=== PATIENT | female | born 1965 | race Caucasian/White ===

== ENCOUNTER → 2024-05-05 12:02 | Outpatient (CLI) | payer OTHER, SELFPAY ==
[2024-05-05 20:39] LABS: Add Manual Diff / Slide Review NO; Basophils Absolute Auto 0 /uL (0-100); Basophils Percent Auto 0.5 % (0-2); Eosinophils Absolute Auto 100 /uL (0-450); Eosinophils Percent Auto 2.4 % (2-4); Hematocrit 40.3 % (36-46); Hemoglobin 13.6 g/dL (12.0-16.0); Lymphocytes Absolute Auto 1800 /uL (1100-4500); Lymphocytes Percent Auto 36.9 % (25-40); Mean Corpuscular HGB Conc 33.6 % (30-36); Mean Corpuscular Hemoglobin 30.6 PG (26-34); Mean Corpuscular Volume 91.1 fL (80-100); Monocytes Absolute Auto 400 /uL (0-900); Monocytes Percent Auto 8.1 % (3-14); Neutrophils Absolute Auto 2500 /uL (1500-7000); Neutrophils Percent Auto 52.1 % (50-75); Platelet Count 243 X10^3/uL (150-400); Red Blood Cell Count 4.43 X10^6/uL (4.0-5.2); White Blood Cell Count 4.8 X10^3/uL (4.5-11.0)
[2024-05-05 20:46] LABS: Alanine Aminotransferase 16 IU/L (<35); Albumin 4.3 g/dL (3.5-5.0); Albumin Globulin Ratio 1.6 (1.0-2.8); Alkaline Phosphatase 83 U/L (38-126); Aspartate Aminotransferase 22 IU/L (14-36); Bilirubin Total 0.6 mg/dL (0.2-1.3); Blood Urea Nitrogen 18 mg/dL (7-17); Calcium 9.5 mg/dL (8.4-10.2); Carbon Dioxide 24 mmol/L (22-32); Chloride 105 mmol/L (98-107); Cholesterol 222 mg/dL (140-199); Estimated Glomerular Filt Rate > 60 mL/min (>60); Globulin 2.7 g/dL (1.7-4.1); Glucose 96 mg/dL (70-100); HDL Cholesterol 59 mg/dL (40-60); HEMOLYSIS < 15 (0-50); LDL Cholesterol Calculated 147 mg/dL (<100); Sodium 137 mmol/L (137-145); Triglycerides 79 mg/dL (35-150)
[2024-05-05 20:56] LABS: Hemoglobin A1C% w Est Avg Glu 5.8 % (4.0-6.0)
[2024-05-05 21:33] LABS: Free T3, Triiodothyronine Free 3.52 pg/mL (2.77-5.27)
[2024-05-05 21:47] LABS: Thyroid Stimulating Hormone 1.09 uIU/mL (0.47-4.68)
[2024-05-05 22:06] LABS: Vitamin B12 651 pg/mL (239-931)
[2024-05-07 03:11] LABS: Homocysteine 10.8 umol/L (0.0-14.5)
[2024-05-07 06:06] LABS: Apolipoprotein B 107 mg/dL (<90)
[2024-05-09 15:36] LABS: Lipoprotein (a) 195.7 nmol/L (<75.0)
[2024-05-09 23:36] LABS: Methylmalonic Acid,Serum 137 nmol/L (0-378)
== END ==
PROVIDERS: Visit Provider Registered Nurse
DX: Z85.50 Personal history of malignant neoplasm of unspecified urinary tract organ (principal); E03.9 Hypothyroidism, unspecified; Z85.850 Personal history of malignant neoplasm of thyroid; Z82.49 Family history of ischemic heart disease and other diseases of the circulatory system; Z85.3 Personal history of malignant neoplasm of breast; R79.82 Elevated C-reactive protein (CRP); Z68.41 Body mass index [BMI] 40.0-44.9, adult; R73.02 Impaired glucose tolerance (oral); E21.3 Hyperparathyroidism, unspecified
CPT/HCPCS: 80053; 80061; 82172; 82607; 83036; 83090; 83695; 83921; 84439; 84443; 84481; 85025; 86140

== ENCOUNTER → 2024-08-07 13:38 | Outpatient (CLI) | payer OTHER, SELFPAY ==
[2024-08-07 20:36] LABS: Hemoglobin A1C% w Est Avg Glu 5.6 % (4.0-6.0)
[2024-08-07 20:37] LABS: Albumin 4.2 g/dL (3.5-5.0); BUN Creatinine Ratio 18.8 (6-22); Blood Urea Nitrogen 22 mg/dL (7-17); Calcium 9.5 mg/dL (8.4-10.2); Carbon Dioxide 26 mmol/L (22-32); Chloride 106 mmol/L (98-107); Estimated Glomerular Filt Rate 54 mL/min (>60); Glucose 88 mg/dL (70-100); HEMOLYSIS < 15 (0-50); Phosphorous 4.1 mg/dL (2.5-4.5); Potassium 4.3 mmol/L (3.4-5.1); Sodium 137 mmol/L (137-145)
[2024-08-07 20:54] LABS: Free T4, Direct Thyroxine 1.07 ng/dL (0.78-2.19)
== END ==
PROVIDERS: Internal Medicine
DX: E89.0 Postprocedural hypothyroidism (principal); Z68.41 Body mass index [BMI] 40.0-44.9, adult; Z86.39 Personal history of other endocrine, nutritional and metabolic disease
CPT/HCPCS: 80069; 83036; 83970; 84439; 84443

== ENCOUNTER → 2024-09-11 13:03 | Outpatient (CLI) | payer OTHER, SELFPAY ==
[2024-09-11 22:09] LABS: Add Manual Diff / Slide Review NO; Basophils Absolute Auto 0 /uL (0-100); Basophils Percent Auto 0.4 % (0-2); Eosinophils Absolute Auto 100 /uL (0-450); Eosinophils Percent Auto 1.8 % (2-4); Hematocrit 39.9 % (36-46); Hemoglobin 13.5 g/dL (12.0-16.0); Lymphocytes Absolute Auto 1600 /uL (1100-4500); Lymphocytes Percent Auto 36.3 % (25-40); Mean Corpuscular HGB Conc 33.8 % (30-36); Mean Corpuscular Hemoglobin 31.1 PG (26-34); Monocytes Absolute Auto 300 /uL (0-900); Monocytes Percent Auto 7.7 % (3-14); Neutrophils Absolute Auto 2400 /uL (1500-7000); Neutrophils Percent Auto 53.8 % (50-75); Platelet Count 229 X10^3/uL (150-400); Red Blood Cell Count 4.33 X10^6/uL (4.0-5.2); Red Cell Distribution Width 14.4 % (11.6-14.8); White Blood Cell Count 4.5 X10^3/uL (4.5-11.0)
[2024-09-11 22:16] LABS: Alanine Aminotransferase 18 IU/L (<35); Albumin 4.4 g/dL (3.5-5.0); Albumin Globulin Ratio 1.6 (1.0-2.8); Alkaline Phosphatase 77 U/L (38-126); Aspartate Aminotransferase 24 IU/L (14-36); BUN Creatinine Ratio 25.9 (6-22); Bilirubin Total 0.5 mg/dL (0.2-1.3); Blood Urea Nitrogen 21 mg/dL (7-17); Calcium 9.3 mg/dL (8.4-10.2); Carbon Dioxide 27 mmol/L (22-32); Chloride 104 mmol/L (98-107); Estimated Glomerular Filt Rate > 60 mL/min (>60); Globulin 2.7 g/dL (1.7-4.1); Glucose 94 mg/dL (70-100); HEMOLYSIS < 15 (0-50); Potassium 4.1 mmol/L (3.4-5.1); Sodium 136 mmol/L (137-145); Total Protein 7.1 g/dL (6.3-8.2)
[2024-09-11 23:07] LABS: Free T4, Direct Thyroxine 1.26 ng/dL (0.78-2.19)
[2024-09-11 23:21] LABS: Thyroid Stimulating Hormone 1.25 uIU/mL (0.47-4.68)
[2024-09-11 23:29] LABS: Hemoglobin A1C% w Est Avg Glu 5.7 % (4.0-6.0)
[2024-09-11 23:40] LABS: Vitamin B12 838 pg/mL (239-931)
[2024-09-13 03:36] LABS: CRP, High Sensitivity 1.41 mg/L (0.00-3.00)
== END ==
DX: E03.9 Hypothyroidism, unspecified (principal); E21.3 Hyperparathyroidism, unspecified; R73.02 Impaired glucose tolerance (oral); R79.82 Elevated C-reactive protein (CRP); Z68.41 Body mass index [BMI] 40.0-44.9, adult; Z82.49 Family history of ischemic heart disease and other diseases of the circulatory system; Z85.3 Personal history of malignant neoplasm of breast; Z85.50 Personal history of malignant neoplasm of unspecified urinary tract organ; Z85.850 Personal history of malignant neoplasm of thyroid
CPT/HCPCS: 80053; 80061; 82172; 82607; 83036; 83090; 83695; 83921; 84439; 84443; 84481; 85025; 86140

== ENCOUNTER → 2024-10-29 11:35 | Outpatient (CLI) | payer OTHER, SELFPAY ==
[2024-10-29 18:57] LABS: Add Manual Diff / Slide Review NO; Basophils Absolute Auto 0 /uL (0-100); Basophils Percent Auto 0.6 % (0-2); Eosinophils Absolute Auto 100 /uL (0-450); Eosinophils Percent Auto 2.6 % (2-4); Hematocrit 37.2 % (36-46); Hemoglobin 12.4 g/dL (12.0-16.0); Lymphocytes Absolute Auto 1700 /uL (1100-4500); Lymphocytes Percent Auto 33.9 % (25-40); Mean Corpuscular HGB Conc 33.3 % (30-36); Mean Corpuscular Hemoglobin 30.1 PG (26-34); Mean Corpuscular Volume 90.4 fL (80-100); Monocytes Absolute Auto 400 /uL (0-900); Monocytes Percent Auto 8.9 % (3-14); Neutrophils Absolute Auto 2600 /uL (1500-7000); Platelet Count 248 X10^3/uL (150-400); Red Blood Cell Count 4.12 X10^6/uL (4.0-5.2); Red Cell Distribution Width 14.5 % (11.6-14.8); White Blood Cell Count 4.9 X10^3/uL (4.5-11.0)
[2024-10-29 19:10] LABS: Alanine Aminotransferase 22 IU/L (<35); Albumin 4.5 g/dL (3.5-5.0); Albumin Globulin Ratio 1.9 (1.0-2.8); Alkaline Phosphatase 83 U/L (38-126); Aspartate Aminotransferase 28 IU/L (14-36); BUN Creatinine Ratio 25.6 (6-22); Bilirubin Total 0.5 mg/dL (0.2-1.3); Blood Urea Nitrogen 20 mg/dL (7-17); Calcium 9.7 mg/dL (8.4-10.2); Carbon Dioxide 25 mmol/L (22-32); Chloride 104 mmol/L (98-107); Estimated Glomerular Filt Rate > 60 mL/min (>60); Globulin 2.4 g/dL (1.7-4.1); Glucose 102 mg/dL (80-110); HEMOLYSIS < 15 (0-50); Potassium 4.2 mmol/L (3.4-5.1); Sodium 136 mmol/L (137-145); Total Protein 6.9 g/dL (6.3-8.2)
== END ==
PROVIDERS: Visit Provider Obstetrics & Gynecology Gynecologic Oncology
DX: Z01.812 Encounter for preprocedural laboratory examination (principal); Z15.89 Genetic susceptibility to other disease
CPT/HCPCS: 80053; 85025; 86304

== ENCOUNTER → 2025-02-02 14:34 | Outpatient (CLI) | payer OTHER, SELFPAY ==
[2025-02-02 19:45] LABS: Albumin 4.3 g/dL (3.5-5.0); Blood Urea Nitrogen 20 mg/dL (7-17); Calcium 9.3 mg/dL (8.4-10.2); Carbon Dioxide 19 mmol/L (22-32); Chloride 108 mmol/L (98-107); Estimated Glomerular Filt Rate > 60 mL/min (>60); Glucose 142 mg/dL (70-99); HEMOLYSIS < 15 (0-50); Phosphorous 3.8 mg/dL (2.8-4.1); Potassium 3.8 mmol/L (3.4-5.1); Sodium 139 mmol/L (137-145)
[2025-02-02 19:50] LABS: Hemoglobin A1C% w Est Avg Glu 5.6 % (4.0-6.0)
[2025-02-02 19:56] LABS: Vitamin D 25 Hydroxy (D3) 57.7 ng/mL (30.0-100.0)
[2025-02-02 20:04] LABS: Free T4, Direct Thyroxine 1.34 ng/dL (0.78-2.19)
[2025-02-02 20:18] LABS: Thyroid Stimulating Hormone 1.22 uIU/mL (0.47-4.68)
[2025-02-05 08:36] LABS: Thyroglobulin Antibodies < 1.0 IU/mL (0.0-0.9)
== END ==
PROVIDERS: Visit Provider Internal Medicine
DX: Z86.39 Personal history of other endocrine, nutritional and metabolic disease (principal); Z85.850 Personal history of malignant neoplasm of thyroid; Z68.41 Body mass index [BMI] 40.0-44.9, adult
CPT/HCPCS: 80069; 82306; 83036; 83970; 84432; 84439; 84443; 86800